=== PATIENT | male | born 1965 | race Caucasian/White ===

== ENCOUNTER → 2017-07-11 | Outpatient (CLI) | payer OTHER ==
[~2017-07-11] MED LIST: FURO40 PO; LANS30EC PO; OTC ACID REDUCER; TAMSULOSIN HCL0.4 MG PO; TUMS
== END | disposition home or self-care (01) ==
LOC: LAB SHORT 09:00 → LAB EV 09:00
DX: R10.9 Unspecified abdominal pain (principal)
CPT/HCPCS: 87338

== ENCOUNTER 2020-03-14 13:20 | Emergency (ER) | payer OTHER ==
[~2020-03-14] VITALS: Ht 175.3 cm; Wt 120.2 kg
[2020-03-14 13:54] LABS: BASOPHILS ABSOLUTE AUTO 0.02 K/mm3 (0.00-0.23); BASOPHILS PERCENT AUTO 0 % (0-2); EOSINOPHILS ABSOLUTE AUTO 0.09 K/mm3 (0.00-0.68); EOSINOPHILS PERCENT AUTO 2 % (0-6); Hematocrit 50.8 % (37.0-53.0); Hemoglobin 17.5 g/dL (13.5-17.5); IMMATURE GRAN ABSOLUTE AUTO 0.01 K/mm3 (0.00-0.10); IMMATURE GRAN PERCENT AUTO 0 % (0-1); LYMPHOCYTES ABSOLUTE AUTO 1.29 K/mm3 (0.84-5.20); LYMPHOCYTES PERCENT AUTO 24 % (21-46); MONOCYTES PERCENT AUTO 8 % (4-13); Mean Corpuscular HGB 30.1 pg (26.0-34.0); Mean Corpuscular HGB Conc 34.4 g/dL (31.5-36.5); Mean Corpuscular Volume 87 fL (80-100); Mean Platelet Volume 10.1 fL (9.1-12.4); NEUTROPHILS ABSOLUTE AUTO 3.52 K/mm3 (1.96-9.15); NEUTROPHILS PERCENT AUTO 66 % (41-73); Platelet Count 214 K/mm3 (150-400); RDW Coefficient Variation 12.3 % (11.7-14.2); RDW Standard Deviation 39.5 fL (35.1-46.3); Red Blood Cell Count 5.81 M/mm3 (4.30-5.90); White Blood Cell Count 5.33 K/mm3 (4.00-11.30)
[2020-03-14 14:17] LABS: Alanine Aminotransfer (ALT/SGP 50 U/L (12-78); Albumin, Blood 3.6 g/dL (3.4-5.0); Alk Phos 78 U/L (50-136); Anion Gap 6 mmol/L (6-16); Aspartate Aminotrans (AST/SGOT 47 U/L (12-37); Bilirubin, Total 0.7 mg/dL (0.1-1.0); Blood Urea Nitrogen 16 mg/dL (8-24); Bun/Creatinine Ratio 16.5 (12.0-20.0); CO2, Blood 23 mmol/L (21-32); Calcium, Blood 8.8 mg/dL (8.5-10.1); Chloride, Blood 110 mmol/L (98-108); Creatinine, Blood 0.97 mg/dL (0.60-1.20); Globulin, Blood 3.7 g/dL (2.2-4.0); Glomerular Filtration Rate >60 (60-); Glucose, Blood 104 mg/dL (70-99); Potassium, Blood 5.1 mmol/L (3.5-5.5); Sodium, Blood 139 mmol/L (136-145); Total Protein, Blood 7.3 g/dL (6.4-8.2); Troponin I <0.015 ng/mL (0.000-0.040)
[2020-03-14] MEDS ORDERED: OMEP20ER PO (15:05)
[2020-03-14] MEDS ORDERED: TESTOSTERONE60 GM PO (15:05)
== END 2020-03-14 16:50 | disposition home or self-care (01) ==
LOC: ER 13:20
PROVIDERS: Physician Assistant
DX: R00.2 Palpitations (principal); Z79.899 Other long term (current) drug therapy; Z87.891 Personal history of nicotine dependence
CPT/HCPCS: 36415; 71046; 80053; 84484; 85025; 93005; 93010; 99285-25

== ENCOUNTER 2020-05-05 08:02 | Emergency (ER) | payer OTHER ==
[~2020-05-05] VITALS: Ht 175.3 cm; Wt 122.5 kg
[~2020-05-05 08:02] MED LIST changes: +OMEP20ER PO; +TESTOSTERONE60 GM PO
[2020-05-05] MEDS ORDERED: ATENOLOL25 MG PO (08:57)
[2020-05-05 09:41] LABS: BASOPHILS ABSOLUTE AUTO 0.01 K/mm3 (0.00-0.23); BASOPHILS PERCENT AUTO 0 % (0-2); EOSINOPHILS ABSOLUTE AUTO 0.08 K/mm3 (0.00-0.68); EOSINOPHILS PERCENT AUTO 1 % (0-6); Hematocrit 50.5 % (37.0-53.0); Hemoglobin 17.8 g/dL (13.5-17.5); IMMATURE GRAN ABSOLUTE AUTO 0.01 K/mm3 (0.00-0.10); IMMATURE GRAN PERCENT AUTO 0 % (0-1); LYMPHOCYTES ABSOLUTE AUTO 1.16 K/mm3 (0.84-5.20); LYMPHOCYTES PERCENT AUTO 20 % (21-46); MONOCYTES ABSOLUTE AUTO 0.47 K/mm3 (0.16-1.47); MONOCYTES PERCENT AUTO 8 % (4-13); Mean Corpuscular HGB 30.6 pg (26.0-34.0); Mean Corpuscular HGB Conc 35.2 g/dL (31.5-36.5); Mean Corpuscular Volume 87 fL (80-100); Mean Platelet Volume 10.3 fL (9.1-12.4); NEUTROPHILS PERCENT AUTO 71 % (41-73); Platelet Count 244 K/mm3 (150-400); RDW Coefficient Variation 12.4 % (11.7-14.2); RDW Standard Deviation 38.8 fL (35.1-46.3); Red Blood Cell Count 5.82 M/mm3 (4.30-5.90); White Blood Cell Count 5.93 K/mm3 (4.00-11.30)
[2020-05-05 09:54] LABS: Alanine Aminotransfer (ALT/SGP 59 U/L (12-78); Albumin, Blood 3.9 g/dL (3.4-5.0); Albumin/Globulin Ratio 1.1 (0.8-1.8); Alk Phos 76 U/L (50-136); Anion Gap 3 mmol/L (6-16); Aspartate Aminotrans (AST/SGOT 22 U/L (12-37); Bilirubin, Total 0.7 mg/dL (0.1-1.0); Blood Urea Nitrogen 18 mg/dL (8-24); Bun/Creatinine Ratio 20.7 (12.0-20.0); CO2, Blood 25 mmol/L (21-32); Calcium, Blood 8.7 mg/dL (8.5-10.1); Chloride, Blood 110 mmol/L (98-108); Creatinine, Blood 0.87 mg/dL (0.60-1.20); Globulin, Blood 3.5 g/dL (2.2-4.0); Glomerular Filtration Rate >60 (60-); Glucose, Blood 109 mg/dL (70-99); Potassium, Blood 4.3 mmol/L (3.5-5.5); Sodium, Blood 138 mmol/L (136-145); Total Protein, Blood 7.4 g/dL (6.4-8.2)
== END 2020-05-05 10:00 | disposition home or self-care (01) ==
LOC: ER 08:02
PROVIDERS: Emergency Medicine
DX: U07.1 COVID-19 (principal); R05 Cough; Z79.899 Other long term (current) drug therapy; Z87.891 Personal history of nicotine dependence
CPT/HCPCS: 36415; 71045; 80053; 85025; 99283-25

== ENCOUNTER 2024-02-01 21:16 | Emergency (ER) | payer BC ==
[~2024-02-01] VITALS: Ht 177.8 cm; Wt 129.3 kg
[~2024-02-01 21:16] MED LIST changes: +ATENOLOL25 MG PO
[2024-02-01 21:31] VITALS: BP 154/98
[2024-02-01] MEDS ORDERED: Diphth,Pertuss(Acell),Tet Vac 0.5 ML VIAL IM ONE (22:00)
== END 2024-02-01 23:50 | disposition home or self-care (01) ==
LOC: ER 21:16
DX: S61.215A Laceration without foreign body of left ring finger without damage to nail, initial encounter (principal); W26.0XXA Contact with knife, initial encounter; Z79.899 Other long term (current) drug therapy; Z87.891 Personal history of nicotine dependence
CPT/HCPCS: 12001; 90471; 90715; 99282-25

== ENCOUNTER 2024-09-12 08:20 | Day surgery (SDC) | payer BC ==
[2024-09-12] VITALS (13 sets, daily range): BP systolic 86–146; BP diastolic 49–90
[~2024-09-12] VITALS: Ht 177.8 cm; Wt 140.7 kg
[~2024-09-12 08:20] MED LIST changes: +TESTOSTERONE60 GM INJ; -TESTOSTERONE60 GM PO
[2024-09-12] MEDS ORDERED: Acetaminophen 500 MG Tab PO SCH ×2 (08:35→16:00)
[2024-09-12] MEDS ORDERED: Ropivacaine 0.5% HCl/Pf 123.125 MG,EPINEPHrine HCL 0.25 MG,Ketorolac Tromethamine 15 MG... INFIL SCH (08:35)
[2024-09-12] MEDS ORDERED: Tranexamic Acid 100 ML IV SCH (08:35)
[2024-09-12] MEDS ORDERED: OxyCODONE HCL 10 MG TABCR PO SCH (08:35)
[2024-09-12] MEDS ORDERED: Chlorhexidine Mouth Care 15 ML UDC MT SCH (08:35)
[2024-09-12] MEDS ORDERED: CeFAZolin Sodium 3,000 MG in NS 100 ML IV SCH ×2 (08:35→19:30)
[2024-09-12] MEDS ORDERED: Lactated Ringer's 1,000 ML IV SCH ×2 (08:35→11:00)
[2024-09-12] MEDS ORDERED: Promethazine HCl 25 MG Tab PO PRN (10:40)
[2024-09-12] MEDS ORDERED: Bisacodyl 10 MG Supp PR PRN (10:40)
[2024-09-12] MEDS ORDERED: Magnesium Hydroxide Conc 10 ML UDC PO PRN (10:45)
[2024-09-12] MEDS ORDERED: HYDROmorphone HCl/Pf 1MG SYR IV PRN ×3 (10:45→12:25)
[2024-09-12] MEDS ORDERED: DiphenhydrAMINE HCL 25 MG Cap PO PRN (10:45)
[2024-09-12] MEDS ORDERED: Metoclopramide HCl 5MG / ML 2ML Vial IV PRN (10:50)
[2024-09-12] MEDS ORDERED: OxyCODONE HCL 5 MG TAB PO PRN ×2 (10:50)
[2024-09-12] MEDS ORDERED: Ondansetron HCl 2 MG / ML 2ML Vial IV PRN ×2 (10:50→11:55)
--- NOTE | 2024-09-12 10:52 | NUR ---
Ambulatory in Day Surgery. Patient confirms NPO status and agrees with scheduled surgery. History, Chart, Medications and Allergies reviewed before start of procedure. Lungs clear T/O to Auscultation. Pt reports he did drink 3/4 of a cup of black coffee this morning at 0700. Discussed with anesthesiologist who cleared pt to continue with surgery today. Pre-Op teaching done. Pt verbalizes understanding. Friend, [employer], is providing transportation home.
[2024-09-12] MEDS ORDERED: Midazolam HCl 1MG / ML 2ML Vial ONE (11:06)
[2024-09-12] MEDS ORDERED: propofoL 60 ML IV ONE (11:24)
[2024-09-12] MEDS ORDERED: ePHEDrine Sulfate 50 MG/ML 1ML Injection ONE (11:28)
[2024-09-12] MEDS ORDERED: FentaNYL Citrate 50 MCG/ML 2 ML Injection IV PRN ×2 (12:00)
[2024-09-12] MEDS ORDERED: Ketorolac Tromethamine 15mg Vial IV SCH (12:00)
--- NOTE | 2024-09-12 14:43 | NUR ---
POST-OP TO ROOM 218 @ 1345 VSS, DECREASED SENSATION TO BILAT LE, UNABLE TO WIGGLE TOES OR LIFT FEET. DENIES PAIN OR NAUSEA. TOLERATING PO INTAKE. IVF RUNNING TXA DONE. CALL LIGHT IN REACH.
[2024-09-12] MEDS ORDERED: Atenolol 25 MG Tab PO SCH (18:00)
--- NOTE | 2024-09-12 18:14 | NUR ---
DISCHARGE PATIENT VOIDING, WORKS WITH THERAPY, VSS, PAIN WELL MANAGED. IV TAKEN OUT INTACT. ALL INSTRUCTIONS READ AND SIGNED. ICE MACHINE AND BELONGINGS ALL PACKED UP AND PATIENT IS WHEELED OUT TO AWAITING CAR.
[2024-09-12] MEDS ORDERED: Docusate Sodium 100 MG Cap PO SCH (21:00)
[2024-09-13] MEDS ORDERED: Omeprazole 20 MG CapCR PO SCH (06:00)
[2024-09-13] MEDS ORDERED: Apixaban 5 MG Tab PO SCH (09:00)
[2024-09-13] MEDS ORDERED: Tamsulosin HCl 0.4 MG Cap PO SCH (09:00)
== END 2024-09-12 18:39 | disposition home or self-care (01) ==
LOC: ORSCMMR 08:20 → ORD 10:00 → ORSCMMR 10:00 → SURS 13:45 → ORSCMMR 18:39
PROVIDERS: Orthopaedic Surgery
PROC: 0SRC0JA Replacement of Right Knee Joint with Synthetic Substitute, Uncemented, Open Approach (ICD-10-PCS; principal; 2024-09-12 10:00)
DX: M17.11 Unilateral primary osteoarthritis, right knee (principal); Z96.652 Presence of left artificial knee joint; I10 Essential (primary) hypertension; G47.33 Obstructive sleep apnea (adult) (pediatric); Z79.899 Other long term (current) drug therapy; E66.01 Morbid (severe) obesity due to excess calories; Z68.41 Body mass index [BMI] 40.0-44.9, adult
CPT/HCPCS: 73560-RT; 97110; 97116; 97161; 97530; A9270; C1713; C1776; J0171; J0690; J0735; J1885; J2250; J2704; J2795; J7120

== ENCOUNTER 2024-09-16 14:11 | Emergency (ER) | payer BC ==
[~2024-09-16] VITALS: Ht 177.8 cm; Wt 133.8 kg
[2024-09-16 15:01] LABS: BASOPHILS ABSOLUTE AUTO 0.01 K/mm3 (0.00-0.23); BASOPHILS PERCENT AUTO 0 % (0-2); EOSINOPHILS ABSOLUTE AUTO 0.04 K/mm3 (0.00-0.68); EOSINOPHILS PERCENT AUTO 1 % (0-6); Hematocrit 39.1 % (37.0-53.0); Hemoglobin 13.6 g/dL (13.5-17.5); IMMATURE GRAN ABSOLUTE AUTO 0.03 K/mm3 (0.00-0.10); IMMATURE GRAN PERCENT AUTO 1 % (0-1); LYMPHOCYTES ABSOLUTE AUTO 0.88 K/mm3 (0.84-5.20); LYMPHOCYTES PERCENT AUTO 14 % (21-46); MONOCYTES ABSOLUTE AUTO 0.49 K/mm3 (0.16-1.47); MONOCYTES PERCENT AUTO 8 % (4-13); Mean Corpuscular HGB 30.2 pg (26.0-34.0); Mean Corpuscular HGB Conc 34.8 g/dL (31.5-36.5); Mean Corpuscular Volume 87 fL (80-100); Mean Platelet Volume 8.9 fL (9.1-12.4); NEUTROPHILS ABSOLUTE AUTO 4.88 K/mm3 (1.96-9.15); NEUTROPHILS PERCENT AUTO 77 % (41-73); Platelet Count 240 K/mm3 (150-400); RDW Coefficient Variation 12.3 % (11.7-14.2); RDW Standard Deviation 39.4 fL (35.1-46.3); White Blood Cell Count 6.33 K/mm3 (4.00-11.30)
[2024-09-16 15:41] LABS: C-REACTIVE PROTEIN, EXT RANGE 15.3 mg/dL (0.000-0.300)
[2024-09-16 15:43] LABS: Albumin, Blood 2.8 g/dL (3.4-5.0); Albumin/Globulin Ratio 0.7 (0.8-1.8); Bilirubin, Total 0.9 mg/dL (0.1-1.0); Calcium, Blood 8.9 mg/dL (8.5-10.1); Creatinine, Blood 1.17 mg/dL (0.60-1.20); Globulin, Blood 4.2 g/dL (2.2-4.0); Potassium, Blood 4.2 mmol/L (3.5-5.5)
[2024-09-16] MEDS ORDERED: DiphenhydrAMINE HCL 25 MG Cap PO ONE (17:25)
[2024-09-16 18:09] VITALS: BP 168/74
== END 2024-09-16 18:09 | disposition home or self-care (01) ==
LOC: ER 14:11
PROVIDERS: Emergency Medicine
DX: L23.9 Allergic contact dermatitis, unspecified cause (principal); Z87.891 Personal history of nicotine dependence
CPT/HCPCS: 80053; 85025; 86140; 93971; 99284-25; A9270

== ENCOUNTER 2024-12-17 04:19 | Emergency (ER) | payer BC ==
[~2024-12-17] VITALS: Ht 175.3 cm; Wt 131.5 kg
[2024-12-17] MEDS ORDERED: Albuterol 2.5 MG/3 ML VIAL INH SCH ×3 (04:50→09:45)
[2024-12-17 04:53] LABS: BASOPHILS ABSOLUTE AUTO 0.01 K/mm3 (0.00-0.23); BASOPHILS PERCENT AUTO 0 % (0-2); EOSINOPHILS ABSOLUTE AUTO 0.09 K/mm3 (0.00-0.68); EOSINOPHILS PERCENT AUTO 2 % (0-6); Hematocrit 43.5 % (37.0-53.0); Hemoglobin 15.0 g/dL (13.5-17.5); IMMATURE GRAN ABSOLUTE AUTO 0.02 K/mm3 (0.00-0.10); IMMATURE GRAN PERCENT AUTO 0 % (0-1); LYMPHOCYTES ABSOLUTE AUTO 0.69 K/mm3 (0.84-5.20); LYMPHOCYTES PERCENT AUTO 12 % (21-46); MONOCYTES ABSOLUTE AUTO 0.54 K/mm3 (0.16-1.47); MONOCYTES PERCENT AUTO 9 % (4-13); Mean Corpuscular HGB Conc 34.5 g/dL (31.5-36.5); Mean Corpuscular Volume 84 fL (80-100); NEUTROPHILS ABSOLUTE AUTO 4.54 K/mm3 (1.96-9.15); NEUTROPHILS PERCENT AUTO 77 % (41-73); NRBC ABSOLUTE 0.00 K/mm3 (0.00-0.02); NRBC Auto 0.0 /100 WBC (0.0-0.2); Platelet Count 178 K/mm3 (150-400); RDW Coefficient Variation 12.8 % (11.7-14.2); RDW Standard Deviation 38.7 fL (35.1-46.3)
[2024-12-17 05:08] LABS: Alanine Aminotransfer (ALT/SGP 40.0 U/L (12-78); Albumin, Blood 3.5 g/dL (3.4-5.0); Albumin/Globulin Ratio 1.2 (0.8-1.8); Anion Gap 8.0 mmol/L (3-11); Aspartate Aminotrans (AST/SGOT 35.0 U/L (12-37); Bilirubin, Total 0.6 mg/dL (0.1-1.0); Blood Urea Nitrogen 15.0 mg/dL (8-24); CO2, Blood 25.0 mmol/L (21-32); Calcium, Blood 8.4 mg/dL (8.5-10.1); Chloride, Blood 105.0 mmol/L (98-108); Creatinine, Blood 1.09 mg/dL (0.60-1.20); Globulin, Blood 3.0 g/dL (2.2-4.0); Glucose, Blood 104.0 mg/dL (70-99); Potassium, Blood 3.8 mmol/L (3.5-5.5); Sodium, Blood 134.0 mmol/L (136-145); Total Protein, Blood 6.5 g/dL (6.4-8.2)
[2024-12-17 05:33] LABS: Influenza A, PCR NEGATIVE (NEGATIVE); Influenza B, PCR NEGATIVE (NEGATIVE); Resp Syncytial Virus, PCR NEGATIVE (NEGATIVE); SARS-Cov-2 (COVID-19) PCR, MMC NEGATIVE (NEGATIVE)
[2024-12-17] MEDS ORDERED: Ipratropium/Albuterol SulF 2.5-0.5MG/3 ML Amp INH ONE (08:25)
[2024-12-17] MEDS ORDERED: ALBU90OI INH (09:44)
[2024-12-17] MEDS ORDERED: PRED20 PO (09:44)
[2024-12-17 11:03] VITALS: BP 134/67
== END 2024-12-17 11:00 | disposition home or self-care (01) ==
LOC: ER 04:19
PROVIDERS: Emergency Medicine
DX: J20.9 Acute bronchitis, unspecified (principal); R60.0 Localized edema; B34.9 Viral infection, unspecified; K21.9 Gastro-esophageal reflux disease without esophagitis; I12.9 Hypertensive chronic kidney disease with stage 1 through stage 4 chronic kidney disease, or unspecified chronic kidney disease; N18.9 Chronic kidney disease, unspecified; Z87.891 Personal history of nicotine dependence; Z79.899 Other long term (current) drug therapy
CPT/HCPCS: 71045; 71260; 80053; 83880; 84484; 85025; 85379; 87637; 93005; 93010; 93971; 96374-59; 99285-25; J1938; J7512; Q9967